=== PATIENT | male | born 1975 | race Caucasian/White ===

== ENCOUNTER 2018-03-08 19:07 | Emergency (ER) | payer OTHER ==
[2018-03-08 20:39] VITALS: BP 151/105
--- NOTE | 2018-03-08 21:30 | RAD ---
Indication: Right knee pain. 4 views of the right knee demonstrates no fracture. Joint spaces all well-preserved. No joint effusion is noted. IMPRESSION: No fracture of the right knee is noted. No joint effusion is noted.
--- NOTE | 2018-03-08 21:42 | UC ---
Chip Johnson Gabriel, scribed for Javier Cruz MD on 03/08/18 at 2100 . Lower Extremity/Ankle HPI - HPI Summary HPI Summary: This patient is a 42 year old M presenting to [facility] accompanied by his family with a chief complaint of right knee pain that began at 1730. The patient rates the pain 10/10 in severity. Symptoms alleviated by hydrocodone, pt took one at 1830. Patient reports he is unable to bear weight. Patient denies TTP. He states he knee popped out as he went to step down onto another surface. Pt states this happened before 10 years ago but it popped back in. - History of Current Complaint Chief Complaint: UCLowerExtremity Stated Complaint: KNEE INJURY Hx Obtained From: Patient Onset/Duration: Lasting Hours, Still Present Severity Initially: Severe Severity Currently: Severe Pain Intensity: 10 Pain Scale Used: 0-10 Numeric Aggravating Factor(s): Ambulation Alleviating Factor(s): Other - hydrocodone Able to Bear Weight: No Related History: Occupational Injury - Allergies/Home Medications Allergies/Adverse Reactions: Allergies Allergy/AdvReac Type Severity Reaction Status Date / Time No Known Allergies Allergy Verified 03/08/18 20:39 Home Medications: Home Medications Hydrocodone/Acetaminophen [Hydrocodone-Acetamin 5-325 mg] 1 tab PO TID PRN 03/08 [History Confirmed 03/08/18] Zolpidem TAB* [Ambien*] 10 mg PO BEDTIME PRN 03/08/18 [History Confirmed ] PMH/Surg Hx/FS Hx/Imm Hx Other History Of: Negative For: Hepatitis B, Hepatitis C, Anticoagulant Therapy - Surgical History Surgical History: Yes Surgery Procedure, Year, and Place: Hernia repair,. Screws in finger. shoulder surgery 2013 - Family History Known Family History: Positive: Hypertension - Social History Occupation: Employed Full-time Lives: With Family Alcohol Use: None Substance Use Type: None Smoking Status (MU): Never Smoked Tobacco Review of Systems Constitutional: Negative - fever Musculoskeletal: Other: - right knee pain All Other Systems Reviewed And Are Negative: Yes Physical Exam - Summary Physical Exam Summary: General: well-appearing, no pain distress Skin: warm, color reflects adequate perfusion, dry Head: normal Eyes: EOMI, JUSTINE ENT: normal Neck: supple, nontender Respiratory: CTA, breath sounds present Cardiovascular: RRR Abdomen: soft, nontender Bowel: present Musculoskeletal: strength/ROM intact, tender in the popliteal area, no TTP on knee cap and LCL, no effusion. Neurological: normal, sensory/motor intact, A&O x3 Psychological: affect/mood appropriate Triage Information Reviewed: Yes Vital Signs: Initial Vital Signs Temp 98 F 03/08/18 20:31 Pulse 57 03/08/18 20:31 Resp 18 03/08/18 20:31 BP 151/105 03/08/18 20:31 Pulse Ox 99 03/08/18 20:31 Vital Signs Reviewed: Yes Diagnostics - Radiology right knee xray Radiology Interpretation Completed By: Radiologist - No fracture of the right knee is noted. No joint effusion is noted.Dr. Cruz has reviewed this report Lower Extremity Course/Dx - Course Course Of Treatment: BP noted and advised to follow up with PCP. Medications reviewed. Allergies noted. - Differential Dx/Diagnosis Provider Diagnoses: RIGHT KNEE PAIN, PROBABLE INTERNAL DERANGEMENT. Elevated blood pressure without a previous diagnoses of hypertension Discharge - Sign-Out/Discharge Documenting (check all that apply): Discharge/Admit/Transfer - Discharge Plan Condition: Stable Disposition: HOME Patient Education Materials: Knee Pain (ED), Knee Immobilizer (ED) Referrals: [facility] [Outside] Additional Instructions: FOLLOW UP WITH ORTHOPEDICS FOR YOU RIGHT KNEE INJURY WITH SUSPECTED INTERNAL DERANGEMENT. GET RECHECKED FOR ANY WORSENING OF YOUR CONDITION OR QUESTIONS OR CONCERNS. YOUR BLOOD PRESSURE WAS ELEVATED TODAY; FOLLOW UP WITH YOUR PRIMARY CARE DOCTOR WITHIN ONE WEEK. - Billing Disposition and Condition Condition: STABLE Disposition: HOME The documentation as recorded by the Chip brink Gabriel accurately reflects the service I personally performed and the decisions made by me, Javier Cruz MD.
== END 2018-03-08 21:45 | disposition home or self-care (01) ==
LOC: UCEAST 19:07
DX: M25.561 Pain in right knee (principal); R03.0 Elevated blood-pressure reading, without diagnosis of hypertension
CPT/HCPCS: 99212; G0463